=== PATIENT | male | born 1930 | race Caucasian/White ===

== ENCOUNTER → 2016-10-05 | Outpatient (CLI) | payer MEDICARE, OTHER ==
[~2016-10-05] MED LIST: ACET325T33 PO; FINA5TAB4 PO; LEVO500T72 PO; LISI10TA2 PO; LOSA50TA6 PO; SIMV20TA2 PO
[2016-10-05 11:32] LABS: HAAIG REFLEX REFLEX FILED
[2016-10-05 12:54] LABS: HEPATITIS B CORE ANTIBODY NEGATIVE (NEGATIVE)
--- NOTE | 2016-10-05 14:07 | RADRPT ---
PROCEDURE: US Abdomen (right upper quadrant). CLINICAL INDICATION: Acute liver failure. TECHNIQUE: Multiple real-time longitudinal and transverse images of the right upper quadrant of th e abdomen were acquired utilizing a curved array transducer. Images were reviewed on a high-resoluti on PACS workstation. COMPARISON: 02/04/2014. FINDINGS: The liver is normal in size and normal in echogenicity. There is no focal hepatic lesion. The gallbladder is surgically absent. The bile ducts are normal with the common bile duct measuring 8.8 mm in diameter. The visualized portions of the pancreas are unremarkable with obscuration of the tail of the pancrea s. No free fluid is present. The right kidney measures 10.0 x 5.7 cm. There is normal echogenicity of the right kidney. There is no perinephric fluid collection. No hydronephrosis, mass, or calculus is seen. IMPRESSION: 1. Status post cholecystectomy. 2. Otherwise normal right upper quadrant abdomen ultrasound. RPTAT: QQ .Earl Mendoza MD, MD Date Time Electronically viewed and signed by .Earl Mendoza MD, on 10/05/2016 14:06 .R/
== END | disposition home or self-care (01) ==
LOC: U/S 10:17
PROVIDERS: ATTEND Internal Medicine Nephrology
DX: K72.00 Acute and subacute hepatic failure without coma (principal)
CPT/HCPCS: 76705; 82140; 86704; 86709; 86803; 87340

== ENCOUNTER 2016-12-23 12:31 | Inpatient (IN) | payer MEDICARE, OTHER ==
[~2016-12-23] VITALS: Ht 170.2 cm; Wt 74.4 kg
[2016-12-23] MEDS ORDERED: CEFEPIME 2GM/50 ML (PMX) 50 ML IVPB STA (13:00)
[2016-12-23] MEDS ORDERED: SODIUM CHLORIDE 0.9% 1L BAG IV* STA (13:00)
[2016-12-23 13:37] LABS: ABNORMAL IP MESSAGE 1; BASOPHILS % 0.3 % (0.0-2.0); EOSINOPHILS % 0.4 % (0.0-7.0); HEMATOCRIT 37.5 % (42.0-52.0); HEMOGLOBIN 12.6 g/dl (14.0-18.0); LYMPHOCYTES # 0.5 10^3/ul (0.8-2.9); MEAN CORPUSCULAR HEMOGLOBIN 36.1 pg (29.0-33.0); MEAN CORPUSCULAR HGB CONC 33.6 g/dl (32.0-37.0); MEAN CORPUSCULAR VOLUME 107.4 fl (82.0-101.0); MEAN PLATELET VOLUME 9.6 fl (7.4-10.4); MONOCYTE # 0.2 10^3/ul (0.3-0.9); MONOCYTES % 3.3 % (0.0-11.0); NEUTROPHIL # 5.9 10^3/ul (1.6-7.5); NEUTROPHILS % 88.6 % (39.0-77.0); PLATELET COUNT 142 10^3/UL (140-415); POSITIVE DIFF @See below; RED BLOOD COUNT 3.49 10^6/ul (4.70-6.10); RED CELL DISTRIBUTION WIDTH 13.8 % (11.5-14.5); WHITE BLOOD COUNT 6.7 10^3/ul (4.8-10.8)
[2016-12-23 13:59] LABS: INR 1.11; PARTIAL THROMBOPLASTIN TIME 26.2 Sec (25.0-35.0); PROTIME 14.3 Sec (12.2-14.2); PT RATIO 1.1
--- NOTE | 2016-12-23 13:59 | RADRPT ---
PROCEDURE: XR Chest 1 View. CLINICAL INDICATION: Shortness of breath. Sepsis. TECHNIQUE: AP view of the chest was obtained. COMPARISON: February 04, 2014 FINDINGS: The heart size is within normal limits. Calcified atherosclerosis is noted in the aorta. The lungs are hypoinflated. No consolidations are identified. No pneumothorax is seen. Osseous structures are intact. IMPRESSION: Calcified atherosclerosis in the aorta. Hypoinflated, clear lungs. RPTAT: AA .Shaw Deleon MD, Date Time Electronically viewed and signed by .Shaw Deleon MD, on 12/23/2016 13:58 .P/
[2016-12-23 14:01] LABS: ALANINE AMINOTRANSFERASE 128 IU/L (13-69); ALBUMIN 3.8 g/dl (3.3-4.9); ALBUMIN/GLOBULIN RATIO 1.08; ALKALINE PHOSPHATASE 399 IU/L (42-121); ANION GAP 13 (8-16); ASPARTATE AMINO TRANSFERASE 240 IU/L (15-46); BILIRUBIN,INDIRECT 0.7 mg/dl (0-1.1); BILIRUBIN,TOTAL 1.6 mg/dl (0.2-1.3); BLOOD UREA NITROGEN 24 mg/dl (7-20); CALCIUM 8.9 mg/dl (8.4-10.2); CARBON DIOXIDE 26 mmol/L (21-31); CHLORIDE 100 mmol/L (97-110); GLUCOSE 276 mg/dl (70-220); POTASSIUM 4.4 mmol/L (3.5-5.1); SODIUM 135 mmol/L (135-144); TOTAL PROTEIN 7.3 g/dl (6.1-8.1)
[2016-12-23 14:13] LABS: TROPONIN-I < 0.012 ng/ml (0.00-0.12)
[2016-12-23 14:52] VITALS: PULSE 90; TEMP 100.2
[2016-12-23 14:59] LABS: ADD UMIC YES; UR ASCORBIC ACID 40 mg/dL (NEGATIVE); UR BACTERIA FEW /HPF (NONE SEEN); UR BILIRUBIN (Dip) NEGATIVE (NEGATIVE); UR BLOOD (Dip) NEGATIVE (NEGATIVE); UR CLARITY SLIGHTLY CLOUDY (CLEAR); UR COLOR AMBER (YELLOW); UR GLUCOSE (Dip) 1+ mg/dL (NEGATIVE); UR KETONES (Dip) NEGATIVE (NEGATIVE); UR LEUKOCYTE ESTERASE (Dip) 2+ Leu/ul (NEGATIVE); UR NITRITE (Dip) NEGATIVE (NEGATIVE); UR RBC 1 /HPF (0-5); UR SPECIFIC GRAVITY (Dip) 1.016 (1.003-1.030); UR TOTAL PROTEIN (Dip) NEGATIVE (NEGATIVE); UR UROBILINOGEN (Dip) 2+ mg/dL (NEGATIVE)
[2016-12-23] MEDS ORDERED: DOCUSATE SODIUM 100 MG CAP PO PRN (16:00)
[2016-12-23] MEDS ORDERED: ACETAMINOPHEN 325 MG TAB PO PRN ×2 (16:00→16:30)
[2016-12-23] MEDS ORDERED: HYPOGLYCEMIA PROTOCOL when Glucose is <70 mg/dL or symptomatic <90 mg/dL. XX ONE (16:00)
[2016-12-23] MEDS ORDERED: ACETAMINOPHEN 650 MG SUPP PR PRN (16:00)
[2016-12-23] MEDS ORDERED: NACL 0.9% 3 ML SYG IV SCH (16:00)
[2016-12-23] MEDS ORDERED: ONDANSETRON 4 MG INJ IV PRN ×2 (16:00→16:30)
[2016-12-23] MEDS ORDERED: HYDROCODONE/APAP (5/325) TAB PO PRN (16:00)
[2016-12-23] MEDS ORDERED: Discontinue current oral sulfonylureas (glyburide, glipizide, and/or glimepiride) prior to XX ONE (16:00)
[2016-12-23] MEDS ORDERED: GLUCAGON 1 MG INJ IM PRN (16:30)
[2016-12-23] MEDS ORDERED: GLUCOSE GEL 15 GRAM TUBE PO PRN ×2 (16:30)
[2016-12-23] MEDS ORDERED: GLUCOSE GEL 15 GRAM TUBE BUCCAL PRN (16:30)
[2016-12-23] MEDS ORDERED: DEXTROSE 50% 50 ML SYRINGE IV PRN ×2 (16:30)
[2016-12-23 17:25] VITALS: BP 127/58; RESP 18
--- NOTE | 2016-12-23 17:58 | HP ---
DATE OF ADMISSION: 12/23/2016 REASON FOR ADMISSION: Feeling cold. HISTORY OF PRESENT ILLNESS: This is an 86-year-old male with past medical history of hypertension, type 2 diabetes, history of BPH, history of ERCP, status post enterostomy, placement of stent and status post laparoscopic cholecystectomy in 2013, presented to the emergency department after having chills and feeling cold and weak for past 2-3 weeks. According to the patient, he was in usual state of health until the past 2-3 weeks. He had been feeling really weak, really tired. Patient denied any sick contact. Denied any abdominal pain, nausea, vomiting, and diarrhea. Patient was saying that he was having chills at home. He might have some increasing frequency of urination, but denied any nocturia, hematuria, hesitancy, and any burning sensation on urination. On arrival to ED, vital signs were he had a fever of 100.0, heart rate was 126, respirations 20, blood pressure 150/67. Had a white count which was 6.7. BUN was 24, creatinine 1.50 from 1.23 in 2017, also had total bilirubin 1.6. AST, ALT were elevated, and alk phos 393. Patient had a UA that showed 2+ urobilinogen, 2+ leukocyte esterase, 60+ WBCs and few bacteria. Patient was given NS 2.3 L and cefepime. Lactic acid went from 2.9-4 and was admitted for further management. PAST MEDICAL HISTORY: 1. Diabetes. 2. Hypertension. 3. Hypercholesteremia. 4. BPH. 5. History of lap cholecystectomy. 6. History of ERCP, with choledocholithiasis. 7. Patient also had a stent removal in 2014. ALLERGIES: MILK ALLERGY. PAST SURGICAL HISTORY: Significant for cholecystectomy, is status post ERCP. SOCIAL HISTORY: Denies any history of smoking, alcohol, or any drug use. Currently lives at home by himself. FAMILY HISTORY: Noncontributory. MEDICATIONS AT HOME: Patient did not bring the list of medications, but according to him, takes 3 medications. REVIEW OF SYSTEMS: Patient denies any abdominal pain, nausea, vomiting, diarrhea, any headache, any blurry vision. Denies any focal neurological deficits. Denies any hematemesis, any melena or any bright red blood per rectum. Some increased frequency. Denies any dysuria. Denies any chest pain, cough, shortness of breath. PHYSICAL EXAMINATION: VITAL SIGNS: Temperature was 100.1, heart rate 126, respirations 20, blood pressure 150/67, saturating 98 percent. GENERAL: Patient is awake, alert, oriented male, does not appear to be in any acute distress. HEENT: Pupils equal, round, reactive to light. NECK: Supple. No JVD. HEART: Tachycardic. LUNGS: Clear to auscultate bilaterally. ABDOMEN: Soft, nontender, nondistended. Positive normoactive bowel sounds. EXTREMITIES: No clubbing, cyanosis, or edema. NEUROLOGIC: Nonfocal. DIAGNOSTIC DATA: Shows potassium of 4.4, BUN of 24. Creatinine 1.50; baseline is around 1.2. Glucose 276. Lactate was 4 and currently 2.9. Total bilirubin 1.6, direct of 0.90. AST 240, ALT 128, alk phos 399. INR 1.1. UA shows 60 WBCs, 2+ leukocyte esterase, urobilinogen positive, 1+ glucose. Chest x-ray: Hypoinflated, lungs clear. ASSESSMENT: 1. This is a 86-year-old male presenting with sepsis, with tachycardia, likely secondary to urinary tract infection. Urinalysis is positive; however, patient also has abnormal liver function tests, with elevated alk phos. Cannot rule out choledocholithiasis. 2. Acute kidney injury on chronic kidney disease, likely secondary to dehydration, plus patient was taking lisinopril at home. 3. Lactic acidosis secondary to sepsis, likely secondary to number 1. 4. Diabetes. 5. Hypertension. 6. Mild anemia. 7. History of benign prostatic hypertrophy. PLAN: At this period of time, patient will be admitted to Med/Surg. We will continue the patient on NS at 100 mL an hour. We will send for urine culture. Blood culture was started. Start the patient on IV Zosyn. We will also get a right upper quadrant ultrasound, which has been ordered by the ER. We will also call ID consultation with Dr. Perez. We will also continue the patient on Proscar. Rest of the treatment will depend on the patient's hospitalization course. Dictated By: MD KRISTIN Ying/kim/ary /Document#: [id number]
[2016-12-23 18:15] LABS: HAAIG REFLEX REFLEX FILED
--- NOTE | 2016-12-23 18:34 | RADRPT ---
PROCEDURE: US Abdomen and Retroperitoneum. CLINICAL INDICATION: Abnormal liver function tests. TECHNIQUE: Multiple real-time images were acquired of the patient's abdomen and retroperitoneum ut ilizing a high resolution transducer. COMPARISON: None FINDINGS: The liver measures 13.3 cm and demonstrates a coarsened echogenicity. The gallbladder has been remov ed. The common bile duct measures 9.6 mm in diameter. The visualized portions of the proximal pancre as are unremarkable. The tail of the pancreas is not well visualized. The spleen measures 11.2 cm an d demonstrates a normal echogenicity. Antegrade flow is seen in the portal vein. Right kidney measures 11.1 cm.. Left kidney measures 10.2 cm. Both kidneys demonstrate a normal ec hogenicity. No hydronephrosis, masses or stones are noted. The visualized portions of the aorta are unremarkable. IMPRESSION: Diffuse fatty infiltration of the liver. Status post cholecystectomy. Tail of pancreas not well visualized. If characterization of this structure is needed repeat exam or CT/MRI is recommended. RPTAT: AA .Shaw Deleon MD, MD Date Time Electronically viewed and signed by .Shaw Deleon MD, MD on 12/23/2016 18:34 .P/
[2016-12-23 18:45] VITALS: Ht 170.2 cm; Wt 74.4 kg
[2016-12-23 19:13] LABS: HEPATITIS B CORE ANTIBODY NEGATIVE (NEGATIVE)
[2016-12-23 20:24] VITALS: BP 125/61; RESP 18
--- NOTE | 2016-12-23 20:36 | CONS ---
DATE OF ADMISSION: 12/23/2016 DATE OF CONSULTATION: 12/23/2016 REASON FOR CONSULTATION: Antibiotic management. CHIEF COMPLAINT: Wyatt Rboerson is an 86-year-old male who comes in now complaining of problems with his liver and is found to have probable urinary tract infection. On admission, he was complaining of weakness and chills. His vital signs were stable. Other problems include: 1. Status post appendectomy. 2. History of ERCP. 3. Hypertension. 4. "Liver problems." 5. History of vertigo. 6. Patient is hard of hearing. On admission, his white count was 6.7, H and H 12.6 and 37.5, platelet count 142,000. BUN and creatinine was 24/1.5. His lactic acid initially was 4 and then came down to 2.7. Bilirubin was 1.6, direct 0.9. His AST is 240, ALT is 128, alkaline phosphatase is 399. His liver function tests are abnormal. A chest x-ray shows hypoinflated lungs. Patient was started on Zosyn. He was initially on cefepime. An ultrasound of the abdomen was ordered. Blood cultures and urine cultures were ordered, as well as urinalysis. His urine showed 2+ leukocyte esterase and 60 white cells per high-powered field consistent with a urinary tract infection. He denies dysuria. PAST MEDICAL HISTORY: Operations as outlined, none. FAMILY HISTORY: Noncontributory. SOCIAL HISTORY: He does not smoke, drink, or abuse drugs. ALLERGIES: NONE TO PENICILLIN, SULFA, OR FOODS. MEDICATIONS: Per chart. REVIEW OF SYSTEMS: Positive actually for hyperlipidemia, as well as hypertension as noted previously. PHYSICAL EXAMINATION: GENERAL: Patient is a well developed, well nourished 86-year-old male who looks younger than his stated age. SKIN: Without generalized rash. HEENT: Within normal limits. NECK: Supple. Lymph nodes nonpalpable. CHEST: Decreased breath sounds at the bases. HEART: Without murmur or gallop. ABDOMEN: Soft, nontender without organosplenomegaly or masses. EXTREMITIES: Without cyanosis, clubbing, or edema. RECTAL: Deferred. GENITAL: Deferred. NEUROLOGICAL: No focal neurological abnormalities. IMPRESSION AND PLAN: Patient currently is being worked up for sepsis for the possibility of cholecystitis but he has no evidence of cholecystitis. He may be need a workup for hepatitis. We should get hepatitis profile if was not ordered. I will dictate my findings to Dr. Ceballos and Dr. Renteria. Dictated By: Rickie Perez MD JD/kim/pam /Document#: [id number]
[2016-12-23] MEDS: SOD CHLORIDE 0.45% 1,000 ML IV SCH (20:47)
[2016-12-23] MEDS: ATORVASTATIN 10 MG TAB PO SCH (20:59)
[2016-12-23] MEDS ORDERED: FAMOTIDINE 20 MG INJ IV SCH (21:00)
[2016-12-23] MEDS: PIPER-TAZO 3.375 GM IV (PMX) 100 ML IVPB SCH (21:18)
[2016-12-23] MEDS: INSULIN ASPART [NOVOLOG] 3 ML PEN SC SCH (21:32)
[2016-12-24] MEDS: ACCU-CHEK XX SCH (02:00)
[2016-12-24 02:34] VITALS: BP 126/60; RESP 16
[2016-12-24] MEDS: PIPER-TAZO 3.375 GM IV (PMX) 100 ML IVPB SCH ×3 (05:25→22:05)
[2016-12-24 05:45] LABS: BASOPHILS % 0.3 % (0.0-2.0); EOSINOPHILS # 0.1 10^3/ul (0.0-0.5); EOSINOPHILS % 0.7 % (0.0-7.0); HEMATOCRIT 37.6 % (42.0-52.0); HEMOGLOBIN 12.7 g/dl (14.0-18.0); LYMPHOCYTES % 9.5 % (15.0-51.0); MEAN CORPUSCULAR HEMOGLOBIN 36.1 pg (29.0-33.0); MEAN CORPUSCULAR HGB CONC 33.8 g/dl (32.0-37.0); MEAN CORPUSCULAR VOLUME 106.8 fl (82.0-101.0); MEAN PLATELET VOLUME 9.7 fl (7.4-10.4); MONOCYTE # 0.4 10^3/ul (0.3-0.9); MONOCYTES % 3.3 % (0.0-11.0); NEUTROPHIL # 9.3 10^3/ul (1.6-7.5); NEUTROPHILS % 85.7 % (39.0-77.0); PLATELET COUNT 126 10^3/UL (140-415); RED BLOOD COUNT 3.52 10^6/ul (4.70-6.10); RED CELL DISTRIBUTION WIDTH 13.7 % (11.5-14.5); WHITE BLOOD COUNT 10.9 10^3/ul (4.8-10.8)
[2016-12-24 06:19] LABS: MAGNESIUM 1.8 mg/dl (1.7-2.5); PHOSPHORUS 2.8 mg/dl (2.5-4.9)
[2016-12-24 06:21] LABS: ALBUMIN 3.4 g/dl (3.3-4.9); ALBUMIN/GLOBULIN RATIO 0.87; BILIRUBIN,DIRECT 2.5 mg/dl (0.00-0.20); BILIRUBIN,INDIRECT 1.4 mg/dl (0-1.1); BILIRUBIN,TOTAL 3.9 mg/dl (0.2-1.3); CALCIUM 8.6 mg/dl (8.4-10.2); CREATININE 1.21 mg/dl (0.61-1.24); POTASSIUM 4.1 mmol/L (3.5-5.1); TOTAL PROTEIN 7.3 g/dl (6.1-8.1)
[2016-12-24] MEDS: SOD CHLORIDE 0.45% 1,000 ML IV SCH ×2 (07:00→14:14)
[2016-12-24 07:41] VITALS: BP 129/61; RESP 18
[2016-12-24] MEDS: INSULIN ASPART [NOVOLOG] 3 ML PEN SC SCH ×4 (08:01→20:24)
[2016-12-24] MEDS: FINASTERIDE 5 MG TAB PO SCH (08:41)
[2016-12-24] MEDS: ENOXAPARIN 40 MG/0.4 ML SYG SC SCH (08:55)
--- NOTE | 2016-12-24 12:15 | PN ---
MACY MYERS 12/24/16 1215: Date/Time of Note Date/Time of Note DATE: 12/24/16 TIME: 12:14 Assessment/Plan VTE Prophylaxis VTE Prophylaxis Intervention: ambulation Lines/Catheters IV Catheter Type (from [facility]): Peripheral IV Urinary Cath still in place: No Assessment/Plan Chief Complaint/Hosp Course 1. Diabetes mellitus type II, controlled. 2. Hypertension, controlled. 3. Hypercholesteremia. 4. BPH. 5. History of lap cholecystectomy. 6. History of ERCP, with choledocholithiasis. 7. Patient also had a stent removal in 2014. 8. SIRS Problems: Assessment/Plan 1. continue current regime Subjective 24 Hr Interval Summary Constitutional: improved, no complaints Exam/Review of Systems Vital Signs Vitals Vital Signs Date Time Temp Pulse Resp B/P Pulse Ox O2 Delivery O2 Flow Rate FiO2 12/24/16 07:41 98.4 62 18 129/61 98 12/23/16 14:52 Room Air Intake and Output 12/23/16 12/23/16 12/24/16 15:00 23:00 07:00 Intake Total 2380 ml 100 ml 1330 ml Output Total 1250 ml Balance 2380 ml 100 ml 80 ml Exam Constitutional: alert, oriented Respiratory: clear to auscultation Cardiovascular: regular rate and rhythm Gastrointestinal: soft Results Result Diagram: 12/24/16 0507 12/24/16 0507 Results 24 hrs Laboratory Tests Test 12/23/16 13:10 12/23/16 14:05 12/23/16 15:05 12/23/16 16:55 White Blood Count 6.7 # Red Blood Count 3.49 L Hemoglobin 12.6 L Hematocrit 37.5 L Mean Corpuscular Volume 107.4 H Mean Corpuscular Hemoglobin 36.1 H Mean Corpuscular Hemoglobin Concent 33.6 Red Cell Distribution Width 13.8 Platelet Count 142 Mean Platelet Volume 9.6 # Neutrophils % 88.6 H Lymphocytes % 7.0 L Monocytes % 3.3 Eosinophils % 0.4 Basophils % 0.3 Nucleated Red Blood Cells % 0.0 Neutrophils # 5.9 Lymphocytes # 0.5 L Monocytes # 0.2 L Eosinophils # 0.0 Basophils # 0.0 Nucleated Red Blood Cells # 0.0 Prothrombin Time 14.3 H Prothrombin Time Ratio 1.1 INR International Normalized Ratio 1.11 Activated Partial Thromboplast Time 26.2 Sodium Level 135 Potassium Level 4.4 Chloride Level 100 Carbon Dioxide Level 26 Anion Gap 13 Blood Urea Nitrogen 24 H Creatinine 1.50 H Glucose Level 276 H Lactic Acid Level 4.0 *H 2.9 *H 2.7 *H Calcium Level 8.9 Total Bilirubin 1.6 H Direct Bilirubin 0.90 H Indirect Bilirubin 0.7 Aspartate Amino Transf (AST/SGOT) 240 H Alanine Aminotransferase (ALT/SGPT) 128 H Alkaline Phosphatase 399 H Troponin I < 0.012 Total Protein 7.3 Albumin 3.8 Globulin 3.50 H Albumin/Globulin Ratio 1.08 Hepatitis B Surface Antigen NEGATIVE Hepatitis B Core Total Antibody NEGATIVE Hepatitis C Antibody NEGATIVE Urine Color JESSICA Urine Clarity SLIGHTLY CLOUDY A Urine pH 6.0 Urine Specific [place] 1.016 Urine Ketones NEGATIVE Urine Nitrite NEGATIVE Urine Bilirubin NEGATIVE Urine Urobilinogen 2+ H Urine Leukocyte Esterase 2+ H Urine Microscopic RBC 1 Urine Microscopic WBC 60 H Urine Bacteria FEW A Urine Hemoglobin NEGATIVE Urine Glucose 1+ H Urine Total Protein NEGATIVE Test 12/23/16 20:50 12/23/16 21:20 12/24/16 02:07 12/24/16 05:07 Bedside Glucose 220 192 132 White Blood Count 10.9 #H Red Blood Count 3.52 L Hemoglobin 12.7 L Hematocrit 37.6 L Mean Corpuscular Volume 106.8 H Mean Corpuscular Hemoglobin 36.1 H Mean Corpuscular Hemoglobin Concent 33.8 Red Cell Distribution Width 13.7 Platelet Count 126 L Mean Platelet Volume 9.7 Neutrophils % 85.7 H Lymphocytes % 9.5 L Monocytes % 3.3 Eosinophils % 0.7 Basophils % 0.3 Nucleated Red Blood Cells % 0.0 Neutrophils # 9.3 H Lymphocytes # 1.0 Monocytes # 0.4 Eosinophils # 0.1 Basophils # 0.0 Nucleated Red Blood Cells # 0.0 Sodium Level 138 Potassium Level 4.1 Chloride Level 104 Carbon Dioxide Level 26 Anion Gap 12 Blood Urea Nitrogen 19 Creatinine 1.21 Glucose Level 110 # Calcium Level 8.6 Phosphorus Level 2.8 Magnesium Level 1.8 Total Bilirubin 3.9 #H Direct Bilirubin 2.50 #H Indirect Bilirubin 1.4 H Aspartate Amino Transf (AST/SGOT) 174 H Alanine Aminotransferase (ALT/SGPT) 145 H Alkaline Phosphatase 340 H Total Protein 7.3 Albumin 3.4 Globulin 3.90 H Albumin/Globulin Ratio 0.87 Amylase Level 81 Lipase 81 Test 12/24/16 07:48 Bedside Glucose 130 Medications Medications Current Medications Sodium Chloride (1/2 NS) 1,000 ml @ 100 mls/hr Q10H IV Last administered on 20:47; Admin Dose 100 MLS/HR; Start 12/23/16 at 21:00; Stop 12/24/16 at 16:59 Ondansetron HCl (Zofran Inj) 4 mg Q6H PRN IV NAUSEA AND/OR VOMITING; Start at 16:00 Acetaminophen (Tylenol Tab) 650 mg Q6H PRN PO PAIN LEVEL 1-3 OR FEVER; Start at 16:00 Acetaminophen (Tylenol Supp) 650 mg Q6H PRN [place] PAIN LEVEL 1-3 OR FEVER; Start 12/23/16 at 16:00 Acetaminophen/ Hydrocodone Bitart ([place] (5/325)) 1 tab Q6H PRN PO MODERATE PAIN LEVEL 4-6; Start 12/23/16 at 16:00 Docusate Sodium (Colace) 100 mg Q12H PRN PO CONSTIPATION Last administered on 22:54; Admin Dose 100 MG; Start 12/23/16 at 16:00 Famotidine (Pepcid Iv) 20 mg QHS IV Last administered on 12/23/16 20:59; Admin Dose 20 MG; Start 12/23/16 at 21:00 Enoxaparin Sodium 40 mg 40 mg DAILY SC Last administered on 12/24/16 08:55; Admin Dose 40 MG; Start 12/24/16 at 09:00 Piperacillin Sod/ Tazobactam Sod (Zosyn 3.375gm/ 100 ml (Pmx)) 100 ml @ 200 mls /hr Q8 IVPB Last administered on 12/24/16 05:25; Admin Dose 200 MLS/HR; Start 12/23/16 at 22:00 Finasteride (Proscar) 5 mg DAILY PO Last administered on 12/24/16 08:41; Admin Dose 5 MG; Start 12/24/16 at 09:00 Atorvastatin Calcium (Lipitor) 10 mg DAILY@21 PO Last administered on 20:59; Admin Dose 10 MG; Start 12/23/16 at 21:00 Diagnostic Test (Pha) (Accu-Chek) 1 ea 02 XX ; Start 12/24/16 at 02:00 Miscellaneous Information 1 ea NOTE XX ; Start 12/23/16 at 16:30 Glucose (Glutose) 15 gm Q15M PRN PO DECREASED GLUCOSE; Start 12/23/16 at 16:30 Glucose (Glutose) 22.5 gm Q15M PRN PO DECREASED GLUCOSE; Start 12/23/16 at 16: 30 Dextrose (D50w Syringe) 25 ml Q15M PRN IV DECREASED GLUCOSE; Start 12/23/16 at 16:30 Dextrose (D50w Syringe) 50 ml Q15M PRN IV DECREASED GLUCOSE; Start 12/23/16 at 16:30 Glucagon (Glucagen) 1 mg Q15M PRN IM DECREASED GLUCOSE; Start 12/23/16 at 16:30 Glucose (Glutose) 15 gm Q15M PRN BUCCAL DECREASED GLUCOSE; Start 12/23/16 at 16 :30 GLORIA CHU MD 12/24/16 1417: Assessment/Plan Assessment/Plan Chief Complaint/Hosp Course Clinically improving, Ucx nega so far, Hep panel pending. c/w zosyn Agree with HOSPITAL TELEVISION RENTAL CLERK note above Problems: Exam/Review of Systems Results Result Diagram: 12/24/16 0507 12/24/16 0507 MACY MYERS Dec 24, 2016 12:15 GLORIA CHU MD Dec 24, 2016 14:17
[2016-12-24 14:00] VITALS: BP 125/60; RESP 18
[2016-12-24 20:00] VITALS: BP 155/71; RESP 19
[2016-12-24] MEDS: ATORVASTATIN 10 MG TAB PO SCH (20:24)
[2016-12-24] MEDS ORDERED: FAMOTIDINE 20 MG TAB PO SCH (21:00)
[2016-12-25 02:00] VITALS: BP 174/79; RESP 18
[2016-12-25] MEDS: ACCU-CHEK XX SCH (02:00)
[2016-12-25] MEDS: PIPER-TAZO 3.375 GM IV (PMX) 100 ML IVPB SCH ×2 (05:54→14:17)
[2016-12-25 05:59] LABS: BASOPHILS % 0.6 % (0.0-2.0); EOSINOPHILS # 0.1 10^3/ul (0.0-0.5); EOSINOPHILS % 1.9 % (0.0-7.0); HEMOGLOBIN 13.6 g/dl (14.0-18.0); MEAN CORPUSCULAR HEMOGLOBIN 36.9 pg (29.0-33.0); MEAN CORPUSCULAR HGB CONC 34.9 g/dl (32.0-37.0); MEAN CORPUSCULAR VOLUME 105.7 fl (82.0-101.0); MEAN PLATELET VOLUME 10.3 fl (7.4-10.4); MONOCYTE # 0.4 10^3/ul (0.3-0.9); MONOCYTES % 5.7 % (0.0-11.0); NEUTROPHIL # 5.3 10^3/ul (1.6-7.5); NEUTROPHILS % 77.7 % (39.0-77.0); PLATELET COUNT 124 10^3/UL (140-415); RED BLOOD COUNT 3.69 10^6/ul (4.70-6.10); RED CELL DISTRIBUTION WIDTH 13.8 % (11.5-14.5); WHITE BLOOD COUNT 6.9 10^3/ul (4.8-10.8)
[2016-12-25 06:37] LABS: CALCIUM 8.8 mg/dl (8.4-10.2); CREATININE 1.2 mg/dl (0.61-1.24)
[2016-12-25 07:34] VITALS: BP 121/60; RESP 18
[2016-12-25] MEDS: INSULIN ASPART [NOVOLOG] 3 ML PEN SC SCH ×3 (07:47→17:26)
[2016-12-25] MEDS: FINASTERIDE 5 MG TAB PO SCH (08:45)
[2016-12-25] MEDS: ENOXAPARIN 40 MG/0.4 ML SYG SC SCH (08:49)
--- NOTE | 2016-12-25 10:18 | PN ---
DATE: 12/24/2016 SUBJECTIVE DATA: No acute events overnight. The patient is alert, feels good, denies pain, discomfort. No nausea, vomiting, diarrhea. T-max 100.2. T current 98.4, pulse 62, respirations 18, blood pressure 129/61. Saturation 98 on room air. LABORATORY AND DIAGNOSTIC DATA: WBC today is 10.9. H and H 12.7 and 37.6, platelets 126,000 with neutrophils 85.7. BUN 19, creatinine 1.21, total bilirubin 3.9, AST 174, ALT 145, alk phos 340. MICROBIOLOGY: Blood and urine cultures negative. DIAGNOSTICS: Ultrasound of the abdomen revealed diffuse fatty infiltration of the liver, tail of pancreas not visualized. Status post-cholecystectomy. ANTIMICROBIALS: Patient is on Zosyn. PHYSICAL EXAMINATION: GENERAL: This is well-nourished, well-developed, elderly, man, who is alert in no distress. HEENT: Head atraumatic, normocephalic. Sclerae anicteric. Buccal mucosa dry. NECK: Supple. CHEST: Rise symmetrical. Breath sounds diminished at the bases. HEART: S1, S2. ABDOMEN: Soft, bowel sounds present. EXTREMITIES: Without cyanosis. ASSESSMENT: 1. Systemic inflammatory response syndrome with low-grade fevers and leukocytosis. 2. Evidence of urinary tract infection as per urinalysis, urine culture pending. 3. Transaminitis, with a history of chronic liver disease, as per patient's medical records, with a history of choledocholithiasis, endoscopic retrograde cholangiopancreatography. Status post-common bile duct [place] [address] Read. 4. Anemia. 5. Diabetes and hypertension. 6. History of benign prostatic hypertrophy. PLAN: The patient remains stable, pending final urine culture. Continue antibiotics. Consider GI evaluation. Consider MRCP given elevated total bilirubin. Dictated By: Opal Heart NP /kim/jolly /Document#: [id number]
--- NOTE | 2016-12-25 11:59 | CONS ---
Date/Time of Note Date/Time of Note DATE: 12/25/16 TIME: 11:59 Assessment/Plan Assessment/Plan Chief Complaint/Hosp Course ID PROGRESS NOTE TOTAL ABX DAY # CURRENT ABX=> Zosyn 24H INTERVAL SUMMARY * NO fever, WBC normalized, feeling better, denies suprapubic pain * Tells me he had suprapubic pain prior to admission "I could not empty my bladder ... I tried and tried to urinate...nothing would come out." * DIAGNOSTICS: Ultrasound of the abdomen revealed diffuse fatty infiltration of the liver, tail of pancreas not visualized. Status post-cholecystectomy. GENERAL: VSS, NAD HEENT: Unremarkable NECK: Trach midline, full ROM CHEST: Rise symmetrical without dyspnea on observation ABDOMEN: Soft, EXTREMITIES: Warm,(+) moves extremities SKIN: No diaphoresis, no rash ID ASSESSMENT: 86 yo M admit with: 1. Systemic inflammatory response syndrome with low-grade fevers and leukocytosis. * Lactic acid went from 2.9->4 2. 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 BPH w/urinary retention per history unable to urinate prior to fevers/chills 4. Transaminitis, with a history of chronic liver disease, as per patient's medical records, * Hx of choledocholithiasis, ERCP w/common bile duct [place] [address] Read. 5. Diabetes 6. Hypertension. 7. Anemia. INVASIVES: ABX ALLERGY: KNDA TOTAL ABX DAY # CURRENT ABX=> Zosyn ID PLAN 1. Continue Zosyn overnight 2. Repeat LFTs, and send PSA in am, if PSA is elevated -- likely confirms Dx of Prostatitis and he can be sent home of Levaquin 3. Is Finasteride enough ? Does he need Tamsulosin ? . Problems: Consultation Date/Type/Reason Admit Date/Time Dec 23, 2016 at 16:23 Initial Consult Date Type of Consultation: ID Exam/Review of Systems Vital Signs Vitals Vital Signs Date Time Temp Pulse Resp B/P Pulse Ox O2 Delivery O2 Flow Rate FiO2 12/25/16 07:34 98.1 60 18 121/60 99 12/23/16 14:52 Room Air Intake and Output 12/24/16 12/24/16 12/25/16 15:00 23:00 07:00 Intake Total 400 ml 1180 ml 1710 ml Output Total 500 ml 1200 ml Balance 400 ml 680 ml 510 ml Results Result Diagram: 12/25/16 0507 12/25/16 0507 Results 24 hrs Laboratory Tests Test 12/24/16 12:21 12/24/16 17:16 12/24/16 20:21 12/25/16 05:07 Bedside Glucose 121 118 128 White Blood Count 6.9 # Red Blood Count 3.69 L Hemoglobin 13.6 L Hematocrit 39.0 L Mean Corpuscular Volume 105.7 H Mean Corpuscular Hemoglobin 36.9 H Mean Corpuscular Hemoglobin Concent 34.9 Red Cell Distribution Width 13.8 Platelet Count 124 L Mean Platelet Volume 10.3 Neutrophils % 77.7 H Lymphocytes % 14.0 L Monocytes % 5.7 Eosinophils % 1.9 Basophils % 0.6 Nucleated Red Blood Cells % 0.0 Neutrophils # 5.3 Lymphocytes # 1.0 Monocytes # 0.4 Eosinophils # 0.1 Basophils # 0.0 Nucleated Red Blood Cells # 0.0 Sodium Level 141 Potassium Level 4.0 Chloride Level 108 Carbon Dioxide Level 25 Anion Gap 12 Blood Urea Nitrogen 16 Creatinine 1.20 Glucose Level 99 Calcium Level 8.8 Test 12/25/16 07:46 Bedside Glucose 106 Medications Medications Current Medications Ondansetron HCl (Zofran Inj) 4 mg Q6H PRN IV NAUSEA AND/OR VOMITING; Start at 16:00 Acetaminophen (Tylenol Tab) 650 mg Q6H PRN PO PAIN LEVEL 1-3 OR FEVER; Start at 16:00 Acetaminophen (Tylenol Supp) 650 mg Q6H PRN [place] PAIN LEVEL 1-3 OR FEVER; Start 12/23/16 at 16:00 Acetaminophen/ Hydrocodone Bitart ([place] (5/325)) 1 tab Q6H PRN PO MODERATE PAIN LEVEL 4-6; Start 12/23/16 at 16:00 Docusate Sodium (Colace) 100 mg Q12H PRN PO CONSTIPATION Last administered on t 22:54; Admin Dose 100 MG; Start 12/23/16 at 16:00 Enoxaparin Sodium 40 mg 40 mg DAILY SC Last administered on 12/25/16 08:49; Admin Dose 40 MG; Start 12/24/16 at 09:00 Piperacillin Sod/ Tazobactam Sod (Zosyn 3.375gm/ 100 ml (Pmx)) 100 ml @ 200 mls /hr Q8 IVPB Last administered on 12/25/16 05:54; Admin Dose 200 MLS/HR; Start 12/23/16 at 22:00 Finasteride (Proscar) 5 mg DAILY PO Last administered on 12/25/16 08:45; Admin Dose 5 MG; Start 12/24/16 at 09:00 Atorvastatin Calcium (Lipitor) 10 mg DAILY@21 PO Last administered on 20:24; Admin Dose 10 MG; Start 12/23/16 at 21:00 Diagnostic Test (Pha) (Accu-Chek) 1 ea 02 XX ; Start 12/24/16 at 02:00 Miscellaneous Information 1 ea NOTE XX ; Start 12/23/16 at 16:30 Glucose (Glutose) 15 gm Q15M PRN PO DECREASED GLUCOSE; Start 12/23/16 at 16:30 Glucose (Glutose) 22.5 gm Q15M PRN PO DECREASED GLUCOSE; Start 12/23/16 at 16: 30 Dextrose (D50w Syringe) 25 ml Q15M PRN IV DECREASED GLUCOSE; Start 12/23/16 at 16:30 Dextrose (D50w Syringe) 50 ml Q15M PRN IV DECREASED GLUCOSE; Start 12/23/16 at 16:30 Glucagon (Glucagen) 1 mg Q15M PRN IM DECREASED GLUCOSE; Start 12/23/16 at 16:30 Glucose (Glutose) 15 gm Q15M PRN BUCCAL DECREASED GLUCOSE; Start 12/23/16 at 16 :30 Famotidine (Pepcid) 20 mg HS PO Last administered on 12/24/16 20:24; Admin Dose 20 MG; Start 12/24/16 at 21:00 OJHN LAINEZ NP Dec 25, 2016 11:59
[2016-12-25 14:46] VITALS: BP 160/74; RESP 18
--- NOTE | 2016-12-25 15:02 | PDOCDIS ---
Discharge Instructions CONDITION Patient Condition: Good HOME CARE INSTRUCTIONS: Diet Instructions: Low Fat /CholesterolSpecial Diet: Carb Controlled ACTIVITY: Activity Restrictions: Slowly Increase Activity MACY MYERS Dec 25, 2016 15:02
[2016-12-25] MEDS ORDERED: LEVO250T35 PO (15:04)
--- NOTE | 2016-12-25 15:06 | PN ---
MACY MYERS 12/25/16 1506: Date/Time of Note Date/Time of Note DATE: 12/25/16 TIME: 15:05 Assessment/Plan VTE Prophylaxis VTE Prophylaxis Intervention: ambulation Lines/Catheters Urinary Cath still in place: No Assessment/Plan Chief Complaint/Hosp Course 1. Diabetes mellitus type II, controlled. 2. Hypertension, controlled. 3. Hypercholesteremia. 4. BPH. 5. History of lap cholecystectomy. 6. History of ERCP, with choledocholithiasis. 7. Patient also had a stent removal in 2014. 8. SIRS Problems: Assessment/Plan 1. discharge home with same medications Subjective 24 Hr Interval Summary Constitutional: improved, no complaints Exam/Review of Systems Vital Signs Vitals Vital Signs Date Time Temp Pulse Resp B/P Pulse Ox O2 Delivery O2 Flow Rate FiO2 12/25/16 14:46 97.9 62 18 160/74 99 12/23/16 14:52 Room Air Intake and Output 12/24/16 12/24/16 12/25/16 15:00 23:00 07:00 Intake Total 400 ml 1180 ml 1710 ml Output Total 500 ml 1200 ml Balance 400 ml 680 ml 510 ml Exam Head: normocephalic Neck: supple Respiratory: clear to auscultation Cardiovascular: regular rate and rhythm Gastrointestinal: soft Results Result Diagram: 12/25/16 0507 12/25/16 0507 Results 24 hrs Laboratory Tests Test 12/24/16 17:16 12/24/16 20:21 12/25/16 05:07 12/25/16 07:46 Bedside Glucose 118 128 106 White Blood Count 6.9 # Red Blood Count 3.69 L Hemoglobin 13.6 L Hematocrit 39.0 L Mean Corpuscular Volume 105.7 H Mean Corpuscular Hemoglobin 36.9 H Mean Corpuscular Hemoglobin Concent 34.9 Red Cell Distribution Width 13.8 Platelet Count 124 L Mean Platelet Volume 10.3 Neutrophils % 77.7 H Lymphocytes % 14.0 L Monocytes % 5.7 Eosinophils % 1.9 Basophils % 0.6 Nucleated Red Blood Cells % 0.0 Neutrophils # 5.3 Lymphocytes # 1.0 Monocytes # 0.4 Eosinophils # 0.1 Basophils # 0.0 Nucleated Red Blood Cells # 0.0 Sodium Level 141 Potassium Level 4.0 Chloride Level 108 Carbon Dioxide Level 25 Anion Gap 12 Blood Urea Nitrogen 16 Creatinine 1.20 Glucose Level 99 Calcium Level 8.8 Test 12/25/16 12:04 Bedside Glucose 177 Medications Medications Current Medications Ondansetron HCl (Zofran Inj) 4 mg Q6H PRN IV NAUSEA AND/OR VOMITING; Start at 16:00 Acetaminophen (Tylenol Tab) 650 mg Q6H PRN PO PAIN LEVEL 1-3 OR FEVER; Start at 16:00 Acetaminophen (Tylenol Supp) 650 mg Q6H PRN [place] PAIN LEVEL 1-3 OR FEVER; Start 12/23/16 at 16:00 Acetaminophen/ Hydrocodone Bitart (Fults (5/325)) 1 tab Q6H PRN PO MODERATE PAIN LEVEL 4-6; Start 12/23/16 at 16:00 Docusate Sodium (Colace) 100 mg Q12H PRN PO CONSTIPATION Last administered on 22:54; Admin Dose 100 MG; Start 12/23/16 at 16:00 Enoxaparin Sodium 40 mg 40 mg DAILY SC Last administered on 12/25/16 08:49; Admin Dose 40 MG; Start 12/24/16 at 09:00 Piperacillin Sod/ Tazobactam Sod (Zosyn 3.375gm/ 100 ml (Pmx)) 100 ml @ 200 mls /hr Q8 IVPB Last administered on 12/25/16 14:17; Admin Dose 200 MLS/HR; Start 12/23/16 at 22:00 Finasteride (Proscar) 5 mg DAILY PO Last administered on 12/25/16 08:45; Admin Dose 5 MG; Start 12/24/16 at 09:00 Atorvastatin Calcium (Lipitor) 10 mg DAILY@21 PO Last administered on 20:24; Admin Dose 10 MG; Start 12/23/16 at 21:00 Diagnostic Test (Pha) (Accu-Chek) 1 ea 02 XX ; Start 12/24/16 at 02:00 Miscellaneous Information 1 ea NOTE XX ; Start 12/23/16 at 16:30 Glucose (Glutose) 15 gm Q15M PRN PO DECREASED GLUCOSE; Start 12/23/16 at 16:30 Glucose (Glutose) 22.5 gm Q15M PRN PO DECREASED GLUCOSE; Start 9/28/17 at 16: 30 Dextrose (D50w Syringe) 25 ml Q15M PRN IV DECREASED GLUCOSE; Start 12/23/16 at 16:30 Dextrose (D50w Syringe) 50 ml Q15M PRN IV DECREASED GLUCOSE; Start 12/23/16 at 16:30 Glucagon (Glucagen) 1 mg Q15M PRN IM DECREASED GLUCOSE; Start 12/23/16 at 16:30 Glucose (Glutose) 15 gm Q15M PRN BUCCAL DECREASED GLUCOSE; Start 12/23/16 at 16 :30 Famotidine (Pepcid) 20 mg HS PO Last administered on 12/24/16t 20:24; Admin Dose 20 MG; Start 12/24/16 at 21:00 GLORIA CHU MD 12/25/16 1613: Assessment/Plan Assessment/Plan Assessment/Plan [facility] Exam/Review of Systems Results Result Diagram: 12/25/16 0507 12/25/16 0507 MACY MYERS Dec 25, 2016 15:06 GLORIA CHU MD Dec 25, 2016 16:13
[2016-12-25] MEDS ORDERED: LEVO500T72 PO (16:07)
--- NOTE | 2016-12-26 12:06 | DS ---
Date/Time of Note Date/Time of Note DATE: 12/26/16 TIME: 12:05 Discharge Summary Admission/Discharge Info Admit Date/Time Dec 23, 2016 at 16:23 Discharge Date/Time Dec 25, 2016 at 19:30 Discharge Diagnosis 1. UTI 2. Hypertension. 3. Hypercholesteremia. 4. BPH. 5. History of lap cholecystectomy. 6. History of ERCP, with choledocholithiasis. 7. Patient also had a stent removal in 2014. 8. Diabetes mellitus type II, controlled 9. Dyslipidemia Patient Condition: Good Consults ID Dr Perez Procedures none Hx of Present Illness This is an 86-year-old male with past medical history of hypertension, type 2 diabetes, history of BPH, history of ERCP, status post enterostomy, placement of stent and status post laparoscopic cholecystectomy in 2013, presented to the emergency department after having chills and feeling cold and weak for past 2-3 weeks. According to the patient, he was in usual state of health until the past 2-3 weeks. He had been feeling really weak , really tired. Patient denied any sick contact. Denied any abdominal pain, nausea, vomiting, and diarrhea. Patient was saying that he was having chills at home. He might have some increasing frequency of urination, but denied any nocturia, hematuria, hesitancy, and any burning sensation on urination. Pt was started on antibiotics broad spectrum, his home medications were adjusted, and DVT prophylaxis was started along with GI ulcer prevention. During the hospitalization pt reported less weak and fatigued. Dr Perez was involved to manage SIRS, final urine culture is negative. Chest xray and abdominal Us are negative. Pt was on Zosyn for a short period of time and was discharged in stable condition with Levaquin prescription to continue Hospital Course During hospitalization pt demonstrated no fever, WBC was normalized,pt started feeling better, and denies suprapubic pain. 1. Systemic inflammatory response syndrome with low-grade fevers and leukocytosis. * Lactic acid went from 2.9->4 2. 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 BPH w/urinary retention per history unable to urinate prior to fevers/chills 4. Transaminitis, with a history of chronic liver disease, as per patient's medical records, * Hx of choledocholithiasis, ERCP w/common bile duct [place] [address] Read. 5. Diabetes 6. Hypertension, controlled. 7. Anemia. . Home Meds Active Scripts Levofloxacin* (Levaquin*) 500 Mg Tablet, 500 MG PO DAILY for 7 Days, TAB Prov:MACY MYERS 12/25/16 Levofloxacin* (Levaquin*) 250 Mg Tablet, 250 MG PO DAILY for 7 Days, TAB Prov:MACY MYERS 12/25/16 Acetaminophen* (Tylenol*) 325 Mg Tablet, 650 MG PO Q6H Y for Mild pain, Fever, # 30 TAB Prov:PHIL RHODES MD 02/11/14 Reported Medications Finasteride* (Finasteride*) 5 Mg Tablet, 5 MG PO DAILY, TAB 02/04/14 Simvastatin (Simvastatin) 20 Mg Tablet, 20 MG PO HS, TAB 02/04/14 Lisinopril* (Lisinopril*) 10 Mg Tablet, 10 MG PO DAILY, TAB 02/04/14 Losartan Potassium* (Losartan Potassium*) 50 Mg Tablet, 50 MG PO DAILY, TAB 02/04/14 Discontinued Scripts Levofloxacin* (Levaquin*) 500 Mg Tablet, 500 MG PO DAILY for infection , #10 TAB Prov:PHIL RHODES MD 02/11/14 Follow-up Plan PCP 1 week Primary Care Provider Kirt Renteria MD Pending Labs Laboratory Tests Test 12/25/16 17:10 Bedside Glucose 179mg/dL (70-220) MACY MYERS Dec 26, 2016 12:06 02/04/14 Discontinued Scripts Levofloxacin* (Levaquin*) 500 Mg Tablet, 500 MG PO DAILY for infection , #10 TAB Prov:PHIL RHODES MD 02/11/14 Follow-up Plan PCP 1 week Primary Care Provider Kirt Renteria MD Pending Labs Laboratory Tests Test 12/25/16 17:10 Bedside Glucose 179mg/dL (70-220) MACY MYERS Dec 26, 2016 12:06
== END 2016-12-25 19:30 | disposition home or self-care (01) | DRG 872 ==
LOC: E/R 12:31 → MS2 16:23
PROVIDERS: ADMIT Internal Medicine; ATTEND Internal Medicine
DX: A41.9 Sepsis, unspecified organism (principal); N17.9 Acute kidney failure, unspecified; E87.2 Acidosis; E11.22 Type 2 diabetes mellitus with diabetic chronic kidney disease; N39.0 Urinary tract infection, site not specified; D64.9 Anemia, unspecified; N18.9 Chronic kidney disease, unspecified; I12.9 Hypertensive chronic kidney disease with stage 1 through stage 4 chronic kidney disease, or unspecified chronic kidney disease; E78.00 Pure hypercholesterolemia, unspecified; N40.1 Benign prostatic hyperplasia with lower urinary tract symptoms; R33.8 Other retention of urine; R74.0 Nonspecific elevation of levels of transaminase and lactic acid dehydrogenase [LDH]; K76.9 Liver disease, unspecified; Z90.49 Acquired absence of other specified parts of digestive tract
CPT/HCPCS: 71010; 76700; 80048; 80053; 81001; 82150; 82962; 83605; 83690; 83735; 84100; 84484; 85025; 85610; 85730; 86704; 86709; 86803; 87040; 87086; 87340; 93005; J0692; J1650; J1815; J2543; J7030

== ENCOUNTER → 2017-04-27 | Outpatient (CLI) | END | disposition home or self-care (01) ==

== ENCOUNTER 2017-06-23 11:17 | Emergency (ER) | END 2017-06-23 12:51 | disposition left against medical advice (07) ==

== ENCOUNTER → 2017-07-07 | Outpatient (CLI) | END | disposition home or self-care (01) ==

== ENCOUNTER → 2017-10-11 | Outpatient (CLI) | END | disposition home or self-care (01) ==

== ENCOUNTER → 2018-01-05 | Outpatient (CLI) | END | disposition home or self-care (01) ==

== ENCOUNTER 2018-01-06 13:45 | Inpatient (IN) | END 2018-01-13 22:00 | disposition home or self-care (01) | DRG 872 ==

== ENCOUNTER 2018-01-24 10:20 | Emergency (ER) | END 2018-01-24 13:20 | disposition left against medical advice (07) ==